=== PATIENT | male | born 1965 | race Caucasian/White ===

== ENCOUNTER 2017-11-18 11:20 | Observation (INO) | payer SELFPAY ==
[~2017-11-18] VITALS: Ht 182.9 cm; Wt 100.0 kg
[2017-11-18] VITALS (12 sets, daily range): BP systolic 152–223; BP diastolic 83–137; PULSE 73–103; RESP 17–20; TEMP 98.9–99; O2SAT 94–100
[2017-11-18] MEDS ORDERED: SODIUM CHLOR 0.9% 1000 ML INJ 1,000 ML IV SCH (11:22)
[2017-11-18] MEDS ORDERED: FAMOTIDINE 20 MG/2 ML VIAL IV PUSH ONE (11:30)
[2017-11-18] MEDS ORDERED: diphenhydrAMINE HCL 50 MG/ML VIAL IVP ONE (11:30)
[2017-11-18] MEDS ORDERED: methylPREDNISolone SOD SUCC 125 MG/2 ML VIAL IV PUSH ONE (11:30)
[2017-11-18] MEDS ORDERED: SODIUM CHLORIDE 0.9% FLUSH 10 ML FLUSH IV FLUSH PRN ×2 (11:30→15:30)
[2017-11-18] MEDS ORDERED: EPINEPHrine HCL (1:1000) 1 MG/ML VIAL IM ONE (11:30)
--- NOTE | 2017-11-18 14:02 | PD ---
HPI Chief Complaint: Allergic/Adverse Reaction Time Seen by Provider: 11:21 Travel History International Travel<30 days: No Contact w/Intl Traveler<30days: No Traveled to known affect area: No History of Present Illness HPI 52-year-old male came to the emergency room with history of sudden onset of tongue swelling up. Patient says that this started about 2 hours prior to coming into the emergency room. He is not sure what could have done this. He has never had this kind of reaction before. Within 2 hours the tongue swelled up significantly where he was having trouble talking or swallowing and he was afraid that he would lose his airway. Currently patient is maintaining his airway but has been having trouble talking. Patient has been hypertensive in triage.. He is not on any EMMANUEL inhibitors. [facility] Past Medical History Narrative Medical List of his past medical, surgical, social and family history is reviewed from the nursing note. Social History Alcohol Use: Yes Tobacco Use: No Substance Use: No Allergies-Medications (Allergen,Severity, Reaction): Coded Allergies: No Allergy Information Available (Unverified , 11/18/17) Comments List of his allergies reviewed from the nursing note. Reported Meds & Prescriptions Reported Meds & Active Scripts Active Narrative Medication Awaiting for the nurse to do med reconciliation. Review of Systems Except as stated in HPI: all other systems reviewed are Neg Physical Exam Narrative GENERAL: Awake, alert, moderate distress SKIN: Focused skin assessment warm/dry. HEAD: Atraumatic. Normocephalic. EYES: Pupils equal and round. No scleral icterus. No injection or drainage. ENT: No nasal bleeding or discharge. Mucous membranes pink and moist. Significant angioedema of the tongue on the left half. NECK: Trachea midline. No JVD. CARDIOVASCULAR: Regular rate and rhythm. No murmur appreciated. RESPIRATORY: No accessory muscle use. Clear to auscultation. Breath sounds equal bilaterally. GASTROINTESTINAL: Abdomen soft, non-tender, nondistended. Hepatic and splenic margins not palpable. MUSCULOSKELETAL: No obvious deformities. No clubbing. No cyanosis. No edema. NEUROLOGICAL: Awake and alert. No obvious cranial nerve deficits. Motor grossly within normal limits. Normal speech. PSYCHIATRIC: Appropriate mood and affect; insight and judgment normal. Data Data Last Documented VS Vital Signs Date Time Temp Pulse Resp B/P (MAP) Pulse Ox O2 Delivery O2 Flow Rate FiO2 11/18/17 13:06 90 17 199/104 (135) 98 Room Air 11/18/17 11:25 98.9 Orders Orders Ecg Monitoring (11/18/17 11:22) Iv Access Insert/Monitor (11/18/17 11:22) Oximetry (11/18/17 11:22) Diphenhydramine Inj (Benadryl Inj) (11/18/17 11:30) Methylprednisolone So Succ Inj (Solumedr (11/18/17 11:30) Famotidine Inj (Pepcid Inj) (11/18/17 11:30) Sodium Chlor 0.9% 1000 Ml Inj (Ns 1000 M (11/18/17 11:22) Sodium Chloride 0.9% Flush (Ns Flush) (11/18/17 11:30) Epinephrine (1:1000) Inj (Adrenalin (1:1 (11/18/17 11:30) Clonidine (Catapres) (11/18/17 14:30) Admit Order (Ed Use Only) (11/18/17 14:17) MDM Medical Decision Making Medical Screen Exam Complete: Yes Emergency Medical Condition: Yes Medical Record Reviewed: Yes Differential Diagnosis Angioedema, anaphylactoid reaction Narrative Course 2:01 PM patient was given IV Solu-Medrol, IV Benadryl, IM epinephrine altogether for his allergic reaction. I have been checking on him intermittently and swelling has been improving very slightly. It certainly has not worsened. However the swelling is not significant enough where I am comfortable discharging him home. I have conveyed this to the patient and he understands. Awaiting for the hospitalist to call back for admission. Critical Care Narrative Aggregate critical care time was 45 minutes. Time to perform other separately billable procedures was not included in the critical care time. My time did not include minutes spent treating any other patients simultaneously or on activities that did not directly contribute to the patient's treatment. The services I provided to this patient were to treat and/or prevent clinically significant deterioration that could result in: Significant tongue angioedema, partial upper airway obstruction I provided critical care services requiring my management, as noted below: Chart data review, documentation time, medication orders and management, vital sign assessments/reviewing monitor data, ordering and reviewing lab tests, ordering and interpreting/reviewing x-rays and diagnostic studies, care of the patient and discussion of the patient with the admitting physicians. Procedures EKG Prior to Arrival: No Diagnosis Primary Impression: Anaphylactoid reaction Qualified Codes: T78.2XXA - Anaphylactic shock, unspecified, initial encounter Additional Impressions: Angioedema Qualified Codes: T78.3XXA - Angioneurotic edema, initial encounter Partial upper airway obstruction Admitting Information Admitting Physician Requests: Observation Scripts Labetalol (Labetalol) 100 Mg Tab 100 MG PO Q12HR for Blood Pressure Management for 30 Days, #60 TAB Prov: Nenita Sharp 11/19/17 Prednisone (Prednisone) 20 Mg Tab 20 MG PO BID for Allergic Reaction for 3 Days, #6 TAB Prov: Nenita Sharp 11/19/17 Amlodipine (Norvasc) 5 Mg Tab 10 MG PO DAILY for Blood Pressure Management for 30 Days, #60 TAB Prov: Nenita Sharp 11/19/17 Tamsulosin (Flomax) 0.4 Mg Cap 0.4 MG PO DAILY for ENLARGED PROSTATE for 30 Days, #30 CAP Prov: Nenita Sharp 11/19/17 Diphenhydramine HCl (Diphenhydramine HCl) 50 Mg Cap 50 MG PO Q8H for Allergic Reaction for 2 Days, #6 CAP Prov: Nenita Sharp 11/19/17 Leonides Phan MD Nov 18, 2017 14:02
[2017-11-18] MEDS ORDERED: ASPI-183 PO (14:05)
[2017-11-18] MEDS ORDERED: cloNIDine HCL 0.1 MG TAB PO ONE (14:30)
[2017-11-18] MEDS ORDERED: NALOXONE HCL 0.4 MG/ML AMP IV PUSH PRN (15:30)
[2017-11-18] MEDS ORDERED: ACETAMINOPHEN 325 MG TAB PO PRN ×2 (15:30)
--- NOTE | 2017-11-18 15:59 | HHI.HP ---
[facility] No Primary Care Physician Admission Diagnosis Angioedema of the tongue Diagnoses: Chief Complaint: Throat swelling Travel History International Travel<30 Days: No Contact w/Intl Traveler <30 Da: No Traveled to Known Affected Are: No History of Present Illness The patient is a 52-year-old male with a past medical history of hypertension who is presenting to the hospital with swelling around his throat. He says this morning at 8 AM he noticed the left side of his tongue was getting a little larger. He said it started to progress and the swelling advanced to involve most areas of his throat. He felt like his throat was closing in on him. He took Benadryl at home and waited for an hour and a half but as his symptoms continue to get worse he drove himself to the hospital. He does endorse pain on the left jaw where he believes the lymph node is. He says that he started to feel better once he received the medications in the emergency department. He has never had anything like this happen to him before. He denies any family history of similar circumstances. The patient said that he had lobster at [facility] yesterday but he says he often has lobster without difficulty. The patient also mentions testicular issues. He says a couple of months ago he had an episode where he had bloody ejaculation. Since then he has had normal ejaculation. He still has persistent right testicular tenderness. The patient says his blood pressure generally runs high. The last time he took blood pressure medication was years ago. He has been on lisinopril in the past but not recently. Review of Systems Except as stated in HPI: all other systems reviewed are Neg Past Family Social History Past Medical History Hypertension Headaches Past Surgical History Tonsillectomy Allergies: Coded Allergies: No Allergy Information Available (Unverified , 11/18/17) Active Ordered Medications Current Medications Medications (Trade) Dose Ordered Sig/Kirby Route Start Time Stop Time Status Last Admin (NS Flush) 2 ml UNSCH PRN IV FLUSH 11/18/17 11:30 (NS Flush) 2 ml UNSCH PRN IV FLUSH 4/24/18 15:30 (NS Flush) 2 ml BID IV FLUSH 11/18/17 21:00 (Tylenol) 650 mg Q4H PRN PO 11/18/17 15:30 (Tylenol) 650 mg Q6H PRN PO 11/18/17 15:30 (Narcan Inj) 0.4 mg UNSCH PRN IV PUSH 11/18/17 15:30 (Norvasc) 5 mg DAILY PO 11/18/17 16:00 (Catapres) 0.2 mg Q6H PRN PO 11/18/17 16:00 Family History Hypertension Lung cancer Social History The patient does not smoke. He will have 4-5 drinks 3-4 times a week. He denies illicit drug use. Physical Exam Vital Signs Vital Signs Date Time Temp Pulse Resp B/P (MAP) Pulse Ox O2 Delivery O2 Flow Rate FiO2 11/18/17 15:27 86 17 200/118 (145) 98 Room Air 11/18/17 14:28 73 17 187/118 (141) 97 Room Air 11/18/17 13:06 90 17 199/104 (135) 98 Room Air 11/18/17 11:32 89 198/119 11/18/17 11:27 99 Room Air 11/18/17 11:27 87 88 99 Room Air 11/18/17 11:25 98.9 83 18 223/123 (156) 99 Physical Exam GENERAL: No apparent distress. SKIN: Focused skin assessment warm/dry. HEAD: Atraumatic. Normocephalic. EYES: Pupils equal and round. No scleral icterus. No injection or drainage. ENT: No nasal bleeding or discharge. Mucous membranes pink and moist. Significant angioedema of the tongue on the left half. Swelling around the neck. NECK: Trachea midline. No JVD. CARDIOVASCULAR: Regular rate and rhythm. No murmur appreciated. RESPIRATORY: No accessory muscle use. Clear to auscultation. Breath sounds equal bilaterally. GASTROINTESTINAL: Abdomen soft, non-tender, nondistended. Hepatic and splenic margins not palpable. : Mild tenderness of the right scrotum, no enlargement. MUSCULOSKELETAL: No obvious deformities. No clubbing. No cyanosis. Trace lower extremity edema. NEUROLOGICAL: Awake and alert. No obvious cranial nerve deficits. Motor grossly within normal limits. Normal speech. PSYCHIATRIC: Appropriate mood and affect; insight and judgment normal. Caprini VTE Risk Assessment Caprini VTE Risk Assessment: Mod/High Risk (score >= 2) Caprini Risk Assessment Model Point Value = 1 Point Value = 2 Point Value = 3 Point Value = 5 Age 41-60 Minor surgery BMI > 25 kg/m2 Swollen legs Varicose veins or History of unexplained or recurrent spontaneous Oral contraceptives or hormone replacement Sepsis (< 1 month) Serious lung disease, including pneumonia (< 1 month) Abnormal pulmonary function Acute myocardial infarction Congestive heart failure (< 1 month) History of inflammatory bowel disease Medical patient at bed rest Age 61-74 Arthroscopic surgery Major open surgery (> 45 min) Laparoscopic surgery (> 45 min) Malignancy Confined to bed (> 72 hours) Immobilizing plaster cast Central venous access Age >= 75 History of VTE Family history of VTE Factor V Leiden Prothrombin [id number] Lupus anticoagulant Anticardiolipin antibodies Elevated serum homocysteine Heparin-induced thrombocytopenia Other congenital or acquired thrombophilia Stroke (< 1 month) Elective arthroplasty Hip, pelvis, or leg fracture Acute spinal cord injury (< 1 month) Prophylaxis Regimen Total Risk Factor Score Risk Level Prophylaxis Regimen 0-1 Low Early ambulation 2 Moderate Order ONE of the following: *Sequential Compression Device (SCD) *Heparin 5000 units SQ BID 3-4 Higher Order ONE of the following medications: *Heparin 5000 units SQ TID *Enoxaparin/Lovenox 40 mg SQ daily (WT < 150 kg, CrCl > 30 mL/min) *Enoxaparin/Lovenox 30 mg SQ daily (WT < 150 kg, CrCl > 10-29 mL/min) *Enoxaparin/Lovenox 30 mg SQ BID (WT < 150 kg, CrCl > 30 mL/min) AND/OR *Sequential Compression Device (SCD) 5 or more Highest Order ONE of the following medications: *Heparin 5000 units SQ TID (Preferred with Epidurals) *Enoxaparin/Lovenox 40 mg SQ daily (WT < 150 kg, CrCl > 30 mL/min) *Enoxaparin/Lovenox 30 mg SQ daily (WT < 150 kg, CrCl > 10-29 mL/min) *Enoxaparin/Lovenox 30 mg SQ BID (WT < 150 kg, CrCl > 30 mL/min) AND *Sequential Compression Device (SCD) Assessment and Plan Assessment and Plan Angioedema Unsure of etiology. No prior episodes and no family history. Has not been on lisinopril for years. - continue steroids, Benadryl and Pepcid. - check C1 and C4 levels. - monitor airway. Hypertensive urgency Blood pressure chronically poorly controlled. - start amlodipine 5 mg daily. Adjust as needed. - clonidine as needed. Testicular pain The pt complained of one episode of bloody ejaculation and continued right testicular tenderness. Exam was benign except for mild tenderness. - check a UA, urine GC:chlamydia. - check a scrotal US. Alcohol abuse The pt endorses drinking more than he should. - cessation instruction. - monitor for withdrawal. PPx: SCDs Code Status Full Discussed Condition With Patient, nurse, Braydon Baker DO Nov 18, 2017 15:59
[2017-11-18] MEDS ORDERED: cloNIDine HCL 0.2 MG TAB PO PRN (16:00)
[2017-11-18] MEDS: amLODIPine BESYLATE 5 MG TAB PO SCH (16:13)
--- NOTE | 2017-11-18 17:17 | RADRPT ---
EXAM DATE/TIME: 11/18/2017 16:28 [facility] COMPARISON: No previous studies available for comparison. INDICATIONS : Bilateral testicle pain. MEDICAL HISTORY : Bilateral testicle pain. SURGICAL HISTORY : None. ENCOUNTER: Initial ACUITY: 2 months PAIN SCORE: 0/10 LOCATION: Bilateral scrotum. MEASUREMENTS: RIGHT TESTICLE: 3.9 x 2.5 x 2.6cm LEFT TESTICLE: 3.9 x 2.7 x 2.2cm FINDINGS: RIGHT TESTICLE: Homogeneous echotexture without intra or extratesticular mass. Blood flow is symmetric and within no rmal limits. Small right-sided hydrocele. No varicocele. Epididymis is within normal limits. LEFT TESTICLE: Homogeneous echotexture without intra or extratesticular mass. Blood flow is symmetric and within no rmal limits. No hydrocele or varicocele. Epididymis is within normal limits except for a small, liv ign-appearing 3 mm epididymal cyst. SCROTUM: Within normal limits. CONCLUSION: 1. Very tiny right-sided hydrocele. Small, 3 mm isolated left epididymal cyst. 2. Otherwise negative. Blood flow was preserved to both testicles. No varicoceles Jose Stephens MD on November 18, 2017 at 17:09 Board Certified Radiologist. This report was verified electronically.
[2017-11-18] MEDS ORDERED: LABETALOL HCL 100 MG/20 ML VIAL IV PUSH ONE (19:15)
[2017-11-18] MEDS: diphenhydrAMINE HCL 50 MG CAP PO SCH (20:23)
[2017-11-18] MEDS: FAMOTIDINE 20 MG TAB PO SCH (21:50)
[2017-11-18] MEDS: predniSONE 20 MG TAB PO SCH (21:50)
[2017-11-18] MEDS: SODIUM CHLORIDE 0.9% FLUSH 10 ML FLUSH IV FLUSH SCH (21:50)
[2017-11-19] VITALS (7 sets, daily range): BP systolic 140–171; BP diastolic 82–101; PULSE 70–89; RESP 18; TEMP 97.8–98.1; O2SAT 95–97
[2017-11-19] MEDS: diphenhydrAMINE HCL 50 MG CAP PO SCH ×2 (02:47→10:37)
[2017-11-19 06:51] LABS: AUTOMATED NEUTROPHIL # 8.5 TH/MM3 (1.8-7.7); BASOPHIL % 0.3 % (0.0-2.0); HEMATOCRIT 38.6 % (39.0-51.0); HEMOGLOBIN 13.6 GM/DL (13.0-17.0); LYMPH % 10.2 % (9.0-44.0); MEAN CELL VOLUME 90.8 FL (80.0-100.0); MEAN CORPUSCULAR HGB CONC 35.2 % (32.0-36.0); MEAN PLATELET VOLUME 8.8 FL (7.0-11.0); MONOCYTE # 0.7 TH/MM3 (0-0.9); NEUT % 82.5 % (16.0-70.0); PLATELET COUNT 232 TH/MM3 (150-450); RED BLOOD COUNT 4.25 MIL/MM3 (4.50-5.90); RED CELL DISTRIBUTION WIDTH 13.4 % (11.6-17.2); WHITE BLOOD COUNT 10.3 TH/MM3 (4.0-11.0)
[2017-11-19 07:13] LABS: ALBUMIN 3.8 GM/DL (3.4-5.0); AST (GOT) 20 U/L (15-37); BICARBONATE 25.7 MEQ/L (21.0-32.0); BLOOD UREA NITROGEN 26 MG/DL (7-18); CALCIUM 8.9 MG/DL (8.5-10.1); CHLORIDE 105 MEQ/L (98-107); CREATININE 1.38 MG/DL (0.60-1.30); GLOMERULAR FILTRATION RATE 54 ML/MIN (>89); GLUCOSE,RANDOM 134 MG/DL (74-106); SODIUM (NA) 141 MEQ/L (136-145)
[2017-11-19 07:14] LABS: ALT (GPT) 29 U/L (12-78)
[2017-11-19 07:16] LABS: ALKALINE PHOSPHATASE 61 U/L (45-117); TOTAL BILIRUBIN ADULT 0.4 MG/DL (0.2-1.0); TOTAL PROTEIN 6.9 GM/DL (6.4-8.2)
[2017-11-19] MEDS: predniSONE 20 MG TAB PO SCH (08:13)
[2017-11-19] MEDS: SODIUM CHLORIDE 0.9% FLUSH 10 ML FLUSH IV FLUSH SCH (08:13)
[2017-11-19] MEDS: amLODIPine BESYLATE 5 MG TAB PO SCH (08:13)
[2017-11-19] MEDS: FAMOTIDINE 20 MG TAB PO SCH (08:13)
[2017-11-19 08:31] LABS: BACTERIA, URINE RARE /hpf; BILIRUBIN, URINE NEG (NEG); BLOOD, URINE NEG (NEG); GLUCOSE,URINE 150 mg/dL (NEG); HYALINE CAST, URINE 3 /lpf (RARE); KETONE, URINE TRACE mg/dL (NEG); MUCUS URINE FEW /lpf (OCC); NITRITE,URINE NEG (NEG); PH, URINE 5.5 (5.0-8.5); SQUAMOUS EPITHELIAL CELL URINE <1 /hpf (0-5); URINE COLOR YELLOW (YELLW/STRAW); URINE LEUKOCYTE ESTERASE NEG (NEG)
[2017-11-19] MEDS ORDERED: POTASSIUM CHLORIDE 10 MEQ CONTROLLED RELEASE TAB PO ONE (09:00)
--- NOTE | 2017-11-19 10:25 | HHI.PR ---
Subjective Remarks Follow up on patient with angioedema. Patient seen and examined. Patient reports his swelling has resolved. He denies any complaints of throat swelling or difficulty swallowing or breathing. He feels he has returned to baseline. He denies any fever or chills. He denies any chest pain or shortness of breath. He denies any N/V or abdominal pain. He denies any dysuria or hematuria. He does endorse 3-4 episodes of nocturia nightly that has been ongoing for quite some time. Objective Vitals Vital Signs Date Time Temp Pulse Resp B/P (MAP) Pulse Ox O2 Delivery O2 Flow Rate FiO2 11/19/17 08:05 97.9 70 18 156/100 (118) 96 11/19/17 03:33 97.8 82 18 140/82 (101) 95 11/19/17 00:07 88 18 156/86 (109) 97 11/18/17 22:18 94 11/18/17 21:28 99.0 79 18 163/96 (118) 96 11/18/17 21:23 11/18/17 21:02 80 20 152/83 (106) 95 Room Air 11/18/17 20:22 80 20 169/87 (114) 95 Room Air 11/18/17 19:19 92 18 172/99 (123) 97 Room Air 11/18/17 18:53 103 17 196/137 (156) 97 Room Air 11/18/17 17:19 83 17 184/110 (134) 100 Room Air 11/18/17 15:27 86 17 200/118 (145) 98 Room Air 11/18/17 14:28 73 17 187/118 (141) 97 Room Air 11/18/17 13:06 90 17 199/104 (135) 98 Room Air 11/18/17 11:32 89 198/119 11/18/17 11:27 99 Room Air 11/18/17 11:27 87 88 99 Room Air 11/18/17 11:25 98.9 83 18 223/123 (156) 99 I/O 11/18/17 11/18/17 11/18/17 11/19/17 11/19/17 11/19/17 07:00 15:00 23:00 07:00 15:00 23:00 Intake Total 1000 ml Balance 1000 ml Intake IV Total 1000 ml Result Diagram: 11/19/17 0622 11/19/17 0622 Imaging Last Impressions Scrotum Ultrasound 11/18/17 0000 Signed Impressions: Service Date/Time: Saturday, November 18, 2017 16:28 - CONCLUSION: 1. Very tiny right-sided hydrocele. Small, 3 mm isolated left epididymal cyst. 2. Otherwise negative. Blood flow was preserved to both testicles. No varicoceles Jose Stephens MD Objective Remarks GENERAL: WDWN male patient INAD. Awake and alert. Appears comfortable. SKIN: Warm and dry. HEAD: Atraumatic. Normocephalic. EYES: Pupils equal and round. No scleral icterus. No injection or drainage. ENT: No nasal bleeding or discharge. Mucous membranes pink and moist. No appreciable angioedema around the mouth or tongue. Swelling around the neck has resolved. NECK: Trachea midline. No JVD. CARDIOVASCULAR: Regular rate and rhythm. No murmur appreciated. RESPIRATORY: Nonlabored. Clear to auscultation. Breath sounds equal bilaterally. GASTROINTESTINAL: Abdomen soft, non-tender, nondistended. No organomegaly. MUSCULOSKELETAL: No obvious deformities. No clubbing. No cyanosis. Trace lower extremity edema. NEUROLOGICAL: Awake and alert. No obvious cranial nerve deficits. Motor grossly within normal limits. Nonfocal. Normal speech. PSYCHIATRIC: Appropriate mood and affect; insight and judgment normal. Medications and IVs Current Medications Medications (Trade) Dose Ordered Sig/Kirby Route Start Time Stop Time Status Last Admin (NS Flush) 2 ml UNSCH PRN IV FLUSH 11/18/17 15:30 (NS Flush) 2 ml BID IV FLUSH 11/18/17 21:00 11/19/17 08:13 (Tylenol) 650 mg Q4H PRN PO 11/18/17 15:30 (Tylenol) 650 mg Q6H PRN PO 11/18/17 15:30 (Narcan Inj) 0.4 mg UNSCH PRN IV PUSH 11/18/17 15:30 (Catapres) 0.2 mg Q6H PRN PO 11/18/17 16:00 (Deltasone) 20 mg BID PO 11/18/17 21:00 11/19/17 08:13 (Benadryl) 50 mg Q8H PO 11/18/17 19:00 11/19/17 10:37 (Pepcid) 20 mg BID PO 11/18/17 21:00 11/19/17 08:13 (Norvasc) 5 mg ONCE ONCE PO 11/19/17 11:15 11/19/17 11:16 UNV (Norvasc) 10 mg DAILY PO 11/20/17 09:00 UNV A/P Assessment and Plan Angioedema, resolved Unsure of etiology. No prior episodes and no family history. Has not been on lisinopril for years. C4 level WNL, C1 level pending - continue steroids, Benadryl and Pepcid. - monitor airway. Hypertensive urgency Blood pressure chronically poorly controlled. - Increase Norvasc dose to 10mg daily. Add Labetalol 100mg BID. - clonidine as needed. - continue to monitor BP and adjust treatment accordingly LINH on ?CKD No baseline labs for comparison - renal US unremarkable except for multiple cysts - encourage po intake - avoid nephrotoxic agents - recommend repeat BMP in 2-3 days with PCP Testicular pain The pt complained of one episode of bloody ejaculation and continued right testicular tenderness. Exam was benign except for mild tenderness. GC/chlamydia not detected. UA unremarkable. Scrotal US shows very tiny right-sided hydrocele. Small, 3 mm isolated left epididymal cyst. - recommend patient follow up with Urologist as outpatient Nocturia - start Flomax 0.4mg daily - recommend follow up with PCP/urologist for JANICE and PSA level Hypokalemia - po repletion ordered - repeat BMP in 2-3 days Alcohol abuse The pt endorses drinking more than he should. - cessation instruction. - monitor for withdrawal. PPx: SCDs Discharge patient to home Condition on discharge: Improved Heart healthy Diet as tolerated Ad Jing activity Rx written: Flomax 0.4mg daily, Norvasc 10mg daily, Prednisone 20mg BID, Benadryl 50mg TID, Labetalol 100mg BID Follow-up with primary care physician and urologist. Have BMP rechecked in 2-3 days to reassess kidney function and potassium level. Nenita Sharp Nov 19, 2017 10:25
--- NOTE | 2017-11-19 11:53 | RADRPT ---
EXAM DATE/TIME: 11/19/2017 10:14 [facility] COMPARISON: No previous studies available for comparison. INDICATIONS : Increased BUN/Creatinine. MEDICAL HISTORY : Hypertension. SURGICAL HISTORY : Tonsillectomy. ENCOUNTER: Initial ACUITY: 1 day PAIN SCORE: 0/10 LOCATION: Bilateral flank MEASUREMENTS: RIGHT KIDNEY: 12.8 x 5.6 x 5.2 cm LEFT KIDNEY: 12.1 x 5.4 x 6.2 cm FINDINGS: RIGHT KIDNEY: Renal cortex is normal in thickness and echotexture. No hydronephrosis, stone, or mass. LEFT KIDNEY: Renal cortex is normal in thickness and echotexture. No hydronephrosis, stone, or mass except for mu ltiple cysts, the largest measuring 4.6 x 3.8 x 4.1 cm. BLADDER: Within normal limits given the degree of distension. CONCLUSION: The kidneys are unremarkable except multiple cysts within the left kidney. Jeremie Coy MD on November 19, 2017 at 11:50 Board Certified Radiologist. This report was verified electronically.
[2017-11-19] MEDS ORDERED: TAMSULOSIN HCL 0.4 MG CAP PO ONE (12:00)
[2017-11-19] MEDS ORDERED: amLODIPine BESYLATE 5 MG TAB PO ONE (12:00)
[2017-11-19] MEDS ORDERED: TAMS5CAP PO (13:04)
[2017-11-19] MEDS ORDERED: AMLO5 PO (13:04)
[2017-11-19] MEDS ORDERED: DIPH50CA PO (13:04)
[2017-11-19] MEDS ORDERED: PRED20 PO (13:04)
[2017-11-19] MEDS ORDERED: LABETALOL HCL 100 MG TAB PO ONE (14:00)
[2017-11-19 16:33] LABS: HEMOGLOBIN A1C 5.5 % (4.3-6.0)
[2017-11-19] MEDS ORDERED: LABE100T2 PO (16:52)
[2017-11-19] MEDS ORDERED: LABETALOL HCL 100 MG TAB PO SCH (21:00)
[2017-11-19 23:02] LABS: CREATININE, RANDOM URINE 238.9 MG/DL
[2017-11-20] MEDS ORDERED: TAMSULOSIN HCL 0.4 MG CAP PO SCH (09:00)
[2017-11-20] MEDS ORDERED: amLODIPine BESYLATE 5 MG TAB PO SCH (09:00)
== END 2017-11-19 17:58 | disposition home or self-care (01) ==
LOC: NEPC 11:20 → NEDA 14:18 → NEDH 20:24 → NEPHCDU 21:02
PROVIDERS: ADMIT Hospitalist; ATTEND Hospitalist
DX: T78.3XXA Angioneurotic edema, initial encounter (principal); I16.0 Hypertensive urgency; N17.9 Acute kidney failure, unspecified; N50.819 Testicular pain, unspecified; R35.1 Nocturia; E87.6 Hypokalemia; F10.10 Alcohol abuse, uncomplicated; I10 Essential (primary) hypertension; R51 Headache
CPT/HCPCS: 76775; 76870; 80053; 81001; 82570; 83036; 83883; 84300; 85025; 86160; 87491; 87591; 93975; 96361; 96372; 96374; 96375; 96376; 99291; G0378; J0171; J1200; J2930; J7030; J7512; Q0163